=== PATIENT | female | born 1955 | race African-American/Black ===

== ENCOUNTER 2025-07-03 10:19 | Outpatient (CLI) | payer OTHER | END 2025-07-03 10:20 | disposition home or self-care (01) | LOC: CSHULT 10:19 | PROVIDERS: ATTEND Family Medicine | DX: R10.11 Right upper quadrant pain (principal); I11.9 Hypertensive heart disease without heart failure; I77.810 Thoracic aortic ectasia | CPT/HCPCS: 76705; 93306 ==